=== PATIENT | male | born 1955 | race Two or more races ===

== ENCOUNTER 2025-01-20 23:46 | Emergency (ER) | payer MEDICARE ==
[2025-01-20 23:54] VITALS: RESP 18
[2025-01-21 00:56] VITALS: BP 129/82; PULSE 91; TEMP 98.1
--- NOTE | 2025-01-21 01:03 | ED ---
General Adult HPI - General Chief complaint: Skin/Abscess/Foreign Body Stated complaint: right knee sweeling from insect bite Time Seen by Provider: 01/20/25 23:58 Source: patient, RN notes reviewed Mode of arrival: wheelchair Limitations: no limitations - History of Present Illness Initial comments: 69-year-old male presents to the emergency department for right distal thigh redness and drainage. Patient notes that it started as a small area of redness a few days ago. He notes that today he noticed some drainage from the wound. This prompted his presentation to the emergency department. He notes pain just above the knee but he reports full range of motion. He is able to bear weight with limitation. He denies any recent fever, chills, nausea, vomiting. - Related Data Previous Rx's Medication Instructions Recorded Cephalexin [Keflex] 500 mg PO Q6HR #40 cap 01/21/25 Sulfamethox-Tmp 800-160Mg [Bactrim 1 each PO Q12HR #20 tab 01/21/25 Ds] Allergies Allergy/AdvReac Type Severity Reaction Status Date / Time No Known Allergies Allergy Verified 01/20/25 23:54 Review of Systems ROS Statement: Those systems with pertinent positive or pertinent negative responses have been documented in the HPI. ROS Other: All systems not noted in ROS Statement are negative. Past Medical History Past Medical History: No Reported History History of Any Multi-Drug Resistant Organisms: None Reported Past Surgical History: Appendectomy, Back Surgery Past Psychological History: No Psychological Hx Reported Smoking Status: Never smoker Past Alcohol Use History: Occasional Past Drug Use History: None Reported General Exam Limitations: no limitations General appearance: alert, in no apparent distress Head exam: Present: atraumatic, normocephalic, normal inspection Eye exam: Present: normal appearance, PERRL, EOMI. Absent: scleral icterus, conjunctival injection, periorbital swelling ENT exam: Present: normal exam, mucous membranes moist Respiratory exam: Present: normal lung sounds bilaterally. Absent: respiratory distress, wheezes, rales, rhonchi, stridor Cardiovascular Exam: Present: regular rate, normal rhythm, normal heart sounds. Absent: systolic murmur, diastolic murmur, rubs, gallop, clicks Extremities exam: Present: full ROM, tenderness, normal capillary refill, other (Erythema and induration to the right distal thigh just above the knee with purulent drainage). Absent: pedal edema, joint swelling, calf tenderness Neurological exam: Present: alert, oriented X3 Psychiatric exam: Present: normal affect, normal mood Skin exam: Present: warm, dry. Absent: intact, normal color (See above) Course Vital Signs 01/20/25 01/21/25 23:51 00:55 Temperature 98 F 98.1 F Pulse Rate 88 91 Respiratory 18 18 Rate Blood Pressure 132/78 129/82 O2 Sat by Pulse 98 99 Oximetry Medical Decision Making - Medical Decision Making Was pt. sent in by a medical professional or institution (, [facility], [facility] SCR[facility]ER, urgent care, hospital, or shelter...) When possible be specific @ -No Did you speak to anyone other than the patient for history (EMS, parent, family, police, friend...)? What history was obtained from this source @ -No Did you review nursing and triage notes (agree or disagree)? Why? @ -I reviewed and agree with nursing and triage notes Were old charts reviewed (outside hosp., previous admission, EMS record, old EKG, old radiological studies, urgent care reports/EKG's, shelter records)? Report findings @ -No old charts were reviewed Differential Diagnosis (chest pain, altered mental status, abdominal pain women, abdominal pain men, vaginal bleeding, weakness, fever, dyspnea, syncope, headache, dizziness, GI bleed, back pain, seizure, CVA, palpatations, mental health, musculoskeletal)? @ -Cellulitis, abscess, septic joint, bursitis, this list is not all inclusive @ -None X-rays interpreted by me (1pt min.). @ -None done CT interpreted by me (1pt min.). @ -None done U/S interpreted by me (1pt. min.). @ -None done What testing was considered but not performed or refused? (CT, X-rays, U/S, labs)? Why? @ -None What meds were considered but not given or refused? Why? @ -None Did you discuss the management of the patient with other professionals (professionals i.e. [facility] Salcedo, CONNIE SCRATCHER, lab, RT, psych nurse, social sciences department chair, purchasing expeditor, teacher, navigation officer, casework manager)? Give summary @ -No Was smoking cessation discussed for >3mins.? @ -No Was critical care preformed (if so, how long)? @ -No Were there social determinants of health that impacted care today? How? (Homelessness, low income, unemployed, alcoholism, drug addiction, transportation, low edu. Level, literacy, decrease access to med. care, senior care, rehab)? @ -No Was there de-escalation of care discussed even if they declined (Discuss DNR or withdrawal of care, Hospice)? DNR status @ -No What co-morbidities impacted this encounter? (DM, HTN, Smoking, COPD, CAD, Cancer, CVA, ARF, Chemo, Hep., AIDS, mental health diagnosis, sleep apnea, morbid obesity)? @ -None Was patient admitted / discharged? Hospital course, mention meds given and route, prescriptions, significant lab abnormalities, going to OR and other pertinent info. @ -Discharge. Patient presents emergency department for evaluation of right leg redness and swelling. Patient's vital signs are stable. Patient afebrile. No systemic symptoms at home. Culture was obtained from the drainage. Patient will be started on p.o. antibiotics. Strict return precautions were discussed and advised to have low threshold to return to the emergency department. He and family expresses understanding and are agreeable with plan. Patient stable at time of discharge. Case discussed with Dr. Mott. Undiagnosed new problem with uncertain prognosis? @ -No Drug Therapy requiring intensive monitoring for toxicity (Heparin, Nitro, Insulin, Cardizem)? @ -No Were any procedures done? @ -No Diagnosis/symptom? @ -Cellulitis and abscess of the thigh Acute, or Chronic, or Acute on Chronic? @ -Acute Uncomplicated (without systemic symptoms) or Complicated (systemic symptoms)? @ -Uncomplicated Side effects of treatment? @ -No Exacerbation, Progression, or Severe Exacerbation? @ -No Poses a threat to life or bodily function? How? (Chest pain, [place], OR, pneumonia, PE, COPD, DKA, ARF, appy, cholecystitis, CVA, Diverticulitis, Homicidal, Suicidal, threat to staff... and all critical care pts) @ -No Disposition Clinical Impression: Cellulitis and abscess of leg Disposition: HOME SELF-CARE Condition: Stable Instructions (If sedation given, give patient instructions): Cellulitis (ED) Additional Instructions: Please flower buncher or picker your antibiotic and take to completion. Return to the emergency department for new or worsening symptoms as we discussed. Prescriptions: Sulfamethox-Tmp 800-160Mg [Bactrim Ds] 1 each PO Q12HR #20 tab Cephalexin [Keflex] 500 mg PO Q6HR #40 cap Is patient prescribed a controlled substance at d/c from ED?: No Referrals: None,Stated [Primary Care Provider] - 1-2 days
[2025-01-21] MEDS: SULFAMETHOX-TMP 800-160MG 1 EACH TAB PO STA (01:06)
[2025-01-21] MEDS: CEPHALEXIN 500 MG CAP PO STA (01:06)
== END 2025-01-21 01:10 | disposition home or self-care (01) ==
LOC: EC 23:46
DX: L03.115 Cellulitis of right lower limb (principal)
CPT/HCPCS: 87070; 87075; 87077; 87186; 87205; 99283